=== PATIENT | female | born 1975 | race Caucasian/White ===

== ENCOUNTER → 2025-05-02 | Outpatient (CLI) | payer BC ==
[~2025-05-02] MED LIST: CIPR250 PO; PHENA200 PO; POTCHL20ER PO
== END | disposition home or self-care (01) ==
LOC: LAB 09:26 → LAB SHORT 09:26
PROVIDERS: Family Medicine
DX: Z01.419 Encounter for gynecological examination (general) (routine) without abnormal findings (principal)
CPT/HCPCS: 87624; G0145